=== PATIENT | male | born 1955 | race Caucasian/White ===

== ENCOUNTER 2019-05-14 11:52 | Inpatient (IN) ==
--- NOTE | 2019-05-14 12:26 | PROVIDER DOCUMENTATION ---
HPI-General Adult - General Chief Complaint: Cough Stated Complaint: COUGHING,LT SIDE PAIN Time Seen by Provider: 05/14/19 12:00 Source: patient Allergies/Adverse Reactions: Patient Allergies Allergy/AdvReac Type Severity Reaction Status Date / Time No Known Allergies Allergy Verified 05/14/19 13:20 Home Medications: Home Medication List Medication Instructions Recorded Confirmed Last Taken Type Amoxicillin 1 tab PO TID 05/14/19 05/14/19 05/14/19 History Esomeprazole [Nexium] 1 tab PO DAILY 05/14/19 05/14/19 05/14/19 History Ipratropium [place] 1 spray INH BID 05/14/19 05/14/19 05/14/19 History Levocetirizine Dihydrochloride 1 tab PO DAILY 05/14/19 05/14/19 05/14/19 History Nystatin 1 dose PO 4XDAY 05/14/19 05/14/19 05/12/19 History Tamsulosin HCl 1 tab PO DAILY 05/14/19 05/14/19 05/14/19 History - History of Present Illness -Gen Adult Nature of Presenting Problems: Pt. is 64 yom that presents with c/o dyspnea on exertion, cough, and abd bloating. Pt. reports he just had a physical done at his PCP and has endoscopy and colonoscopy scheduled in the next couple of weeks. He denies any other symptoms. Location of Pain/Injury: reports: abdomen. denies: none, head, face, mouth, neck, chest, upper extremity, hand(s), back, pelvis, genitalia, lower extremity, feet, upper body, lower body, generalized, other Pain Radiation: reports: no radiation. denies: arm(s), back, buttocks, chest, epigastric, feet, groin, jaw, flank (L), legs (lower), LLQ, LUQ, neck, periumbilical, flank (R), RLQ, RUQ, shoulder(s), scapula, scrotal, sternal notc h, suprapubic, legs (upper), urethral, vaginal, other Quality of Pain: reports: aching. denies: burning, cramping, stabbing, tightness Severity: reports: mild. denies: moderate, severe Onset/Duration: reports: gradual, 1 week ago Timing: reports: still present, intermittent. denies: gone now, constant, getting worse Context/Activities at Onset: reports: none. denies: light activity, moderate activity, vigorous activity, recent emotional stress, recent physical stress, recent trauma history, possible bad food, cold exposure, eating, out of country travel, rest, sleep, sexual activity, other Modifying Factors: improves with: nothing Associated Symptoms: reports: cough, heartburn, shortness of breath. denies: denies symptoms, anxiety, arm pain, back/neck pain, chest pain, constipation, diaphoresis, diarrhea, dizziness, EENT symptoms, fatigue, fever/chills, leslee tourinary problems, headaches, joint pain, loss of appetite, malaise, muscle aches, sinus congestion/drainage, nausea, rash, seizure, sensory/motor loss, pain with inspiration, swelling/mass in abdomen, syncope, vomiting, weakness, trouble walking, other Similar Symptoms Previously?: Yes Recently seen or treated by another doctor?: Yes Review of Systems - Adult - REVIEW OF SYSTEMS - ADULT Constitutional: reports: no symptoms reported Eyes: reports: no symptoms reported Ears, Nose, Mouth & Throat: reports: no symptoms reported Cardiovascular: reports: no symptoms reported Respiratory: reports: see HPI, cough, dyspnea on exertion, shortness of breath. denies: chronic cough, pleurisy, wheezing Gastrointestinal: reports: no symptoms reported Genitourinary: reports: no symptoms reported Musculoskeletal: reports: no symptoms reported Integumentary: reports: no symptoms reported Neurological: reports: no symptoms reported Psychiatric: reports: no symptoms reported Past History - Adult - PAST MEDICAL HISTORY-ADULT Review of Records: reports: Old Records Reviewed, Nursing Assessment Review, Medications Reviewed, Social history reviewed & non-contributory. - IMMUNIZATION STATUS Childhood Immunizations: See Nurse Assessment Flu Vaccine: See Nurse Assessment - FAMILY HISTORY Family History: reviewed, not pertinent - SOCIAL HISTORY Smoking: non-smoker Physical Exam-General - PHYSICAL EXAM-ADULT Initial Vital Signs Reviewed: Yes - CONSTITUTIONAL General Appearance: alert, no apparent distress, thin. negative: anxious, slow to respond, obtunded, combative - EYES Eyes: PERRL/EOMI, pink conjunctivae - HEAD, EARS, NOSE, MOUTH & THROAT HENMT: normocephalic/atraumatic, moist mucous membranes - NECK Neck: non-tender, full range of motion, supple, normal inspection. negative: lymphadenopathy, trachial deviation, thyromegaly - RESPIRATORY Respiratory: lungs clear, normal breath sounds - CARDIOVASCULAR Cardiovascular: regular rate, rhythm, no edema, tachycardia - GASTROINTESTINAL (ABDOMEN) Abdominal Exam: normal bowel sounds, non tender, soft - LYMPHATIC Lymphatic: no adenopathy. negative: axilla node tender, cervical node tenderness - MUSCULOSKELETAL Back Exam: normal inspection, no CVA tenderness, no vertebral tenderness Extremity: normal range of motion, non-tender, normal gait, normal inspection Peripheral Pulses: radial (R): 2+, radial (L): 2+ - SKIN Integumentary: normal color, normal turgor, warm/dry - NEUROLOGIC Neurologic: grossly normal, no motor/sensory deficits - PSYCHIATRIC Psych/Mental Status: normal mood/affect, normal thought content, normal thought process, oriented x 3 Progress - PLAN OF CARE/RESULTS Progress/Plan/Lab Results: Vital Signs - 8 hr 05/14/19 11:55 Temperature 98.3 F Pulse Rate 109 H Respiratory Rate 18 Blood Pressure 106/65 O2 Sat by Pulse Oximetry 97 Orders Category Date Time Status Saline Loc NOW Care 05/14/19 12:22 Active FLAT/UPRIGHT ABD/1 VIEW CHEST [RAD] Stat Exams 05/14/19 12:23 Ordered CBC WITH ELECTRONIC DIFF [HEME] Stat Lab 05/14/19 12:22 Uncollected CK PROFILE [SP CHEM] Stat Lab 05/14/19 12:22 Uncollected COMPREHENSIVE METABOLIC PANEL [CHEM] Stat Lab 05/14/19 12:22 Uncollected D-DIMER [COAG] Stat Lab 05/14/19 12:23 Uncollected LIPASE [CHEM] Stat Lab 05/14/19 12:24 Uncollected MAGNESIUM [CHEM] Stat Lab 05/14/19 12:24 Uncollected PRO B-NATRIURETIC PEPTIDE Stat Lab 05/14/19 12:23 Ordered TROPONIN T Stat Lab 05/14/19 12:23 Uncollected TSH Stat Lab 05/14/19 12:23 Uncollected URINALYSIS W/POSS RFLX CULT [URINALYSIS] Stat Lab 05/14/19 12:23 Uncollected EKG [EKG] Stat Ther 05/14/19 12:22 Ordered Result Diagrams: 05/14/19 13:14 05/14/19 13:14 - XRAY 1 XRAY Study: Chest, Abdomen ([facility] - [address], [address], [place] [address] [facility] - [address] [place] [address] Department of Imaging Patient: NATAN OROSCO Date: 05/14/19MR#: [id number] : 1955DM Status: PRE ERAcct#: [id number] Age/Sex: 64/MRoom/Bed: Loc: ED Ordering Physician: Heather Tee Family Physician: Marcie Rudd MD Reason for Procedure: abd pain/cough Signed FLAT/UPRIGHT ABD/1 VIEW CHEST - 05/14/2019 INDICATION: abd pain/cough TECHNIQUE: COMPARISON: 04/27/2017 FINDINGS: The chest is grossly clear. There is a nonobstructive bowel gas pattern. No free air or abnormal calcifications. IMPRESSION: Negative exam. Electronically signed by Rohan Gaitan 05/14/2019 12:38 PM 05/14/19 1238 Interpreting Physician: Rohan Gaitan MD Dictated Date/Time: 05/14/19 1237 cc: Heather Tee; Marcie Rudd MD) XRAY Interpretation: See note Departure - Departure Date of Disposition Decision: 05/14/19 Time of Disposition Decision: 16:05 DIAGNOSIS: Pulmonary emboli, Pneumonia Disposition: ADMITTED INPATIENT 09 Certified Medical Emergency: Emergent Condition: Fair Referrals and Follow-Ups: Marcie Rudd MD [Primary Care Provider] - - Critical Care Note This patient required my direct & personal management of CC.: Yes Total Time (mins): 50 Critical Care Statement: This patient required my direct personal management to treat or rule out processes, the absence of which, could potentiallly result in sudden, clinically significant life or limb threatening deterioration. Attestation - Physician/ IESHA Attestation Patient care was provided by Advanced Practice Provider:: Yes Advanced Practice Provider:: Heather Tee Advanced Practice Provider documentation review:: The Mid-level provider documentation, treatment plan and medical decision making was reviewed by the physician who agrees with all treatment and medical decision making by the MLP. The physician spent face to face time with patient:: No Advanced Practice Provider documentation review:: Supervising physician onsite and consulted in the evaluation and care of this patient. The physician did not have a face to face encounter with the patient.
--- NOTE | 2019-05-14 12:41 | Diag Imaging Result Doc PS360 ---
FLAT/UPRIGHT ABD/1 VIEW CHEST - 05/14/2019 INDICATION: abd pain/cough TECHNIQUE: COMPARISON: 04/27/2017 FINDINGS: The chest is grossly clear. There is a nonobstructive bowel gas pattern. No free air or abnormal calcifications. IMPRESSION: Negative exam. Electronically signed by Rohan Gaitan 05/14/2019 12:38 PM
[2019-05-14 13:27] LABS: URINE SOURCE CLEAN CATCH
[2019-05-14 13:29] LABS: BASO# 0.02 X1000 (0.0-0.2); BASO% 0.3 % (0.0-0.8); EOS# 0.16 X1000 (0.0-0.7); EOS% 2.3 % (0.0-10.0); HEMATOCRIT 39.8 % (42.0-52.0); HEMOGLOBIN 13.3 g/dL (14.0-18.0); IMM GRAN# 0.03 X1000 (0.0-0.04); IMM GRAN% 0.4 % (0.0-0.5); LYMPH# 0.85 X1000 (1.2-3.4); MCH 26.2 PG (27-31); MCHC 33.4 g/dL (33-37); MCV 78.5 FL (81-99); MONO# 0.62 X1000 (0.11-0.59); MONO% 8.8 % (1.7-9.3); MPV 10.8 FL (7.4-10.4); NEUT% 76.2 % (42.2-75.2); PLT 206 X1000 (130-400); RBC 5.07 XMIL (4.7-6.1); RDW 15.4 % (11.5-14.5); WBC 7.08 X1000 (4.8-10.8)
[2019-05-14 13:35] LABS: BILIRUBIN URINE NEGATIVE (NEGATIVE); BLOOD URINE NEGATIVE (NEGATIVE); COLOR YELLOW; GLUCOSE URINE NEGATIVE (NEGATIVE); KETONE URINE NEGATIVE (NEGATIVE); LEUKOCYTES URINE NEGATIVE (NEGATIVE); NITRITE URINE NEGATIVE (NEGATIVE); PROTEIN URINE TRACE mg/dL (NEGATIVE); SP GRAVITY URINE 1.028; TURBIDITY URINE CLEAR (CLEAR); UROBILINOGEN URINE NORMAL (NORMAL)
[2019-05-14 13:38] LABS: UR EPITHELIAL CELLS <10 /HPF (<10); URINE BACTERIA NEGATIVE /HPF; URINE RBC <10 /HPF (<10); URINE WBC <10 /HPF (<10)
[2019-05-14 14:22] LABS: AGAP 16; ALB/GLOB RATIO 1.7; ALBUMIN 3.9 g/dL (3.5-5.0); ALKALINE PHOSPHATASE 119 U/L (32-122); BUN 20 mg/dL (8-22); CALCIUM 9.4 mg/dL (8.8-10.2); CHLORIDE 105 mmol/L (98-107); COSMO 291; CREATININE 1.1 mg/dL (0.7-1.2); ESTIMATED GFR > 60; GLUCOSE 120 mg/dL (70-104); GOT 25 U/L (10-34); GPT 20 U/L (10-44); LIPASE 20 U/L (13-60); MAGNESIUM 2.1 mg/dL (1.5-2.7); POTASSIUM 4.3 mmol/L (3.5-5.1); SODIUM 144 mmol/L (136-145); TCO2 23 mmol/L (25-35); TOTAL BILIRUBIN 0.51 mg/dL (0.20-1.00); TOTAL PROTEIN 6.2 g/dL (6.3-8.3)
[2019-05-14 14:27] LABS: CK PROFILE 205 U/L (24-204)
[2019-05-14 14:44] LABS: CK INDEX 0.9 (0.0-2.5); CK-MB 1.88 ng/mL (0.0-5.0)
--- NOTE | 2019-05-14 15:50 | Diag Imaging Result Doc PS360 ---
CT ANGIOGRM PULMONARY ARTERIES - 05/14/2019 INDICATION: elevated d-dimer, SOB, tachycardia TECHNIQUE: Axial CT images were obtained after administering intravenous contrast. Coronal MIP images were generated. COMPARISON: 12/08/2018 FINDINGS: There are several small scattered segmental pulmonary emboli bilaterally mainly in the lower lobes. Heart size is normal with no pericardial effusion. There is some mild mediastinal and right hilar lymphadenopathy. There is a small opacity in the right lateral costophrenic angle which was not present previously. There is a moderate left lower lobe infiltrate and a trace left pleural effusion. Upper abdominal organs are grossly unremarkable. Bones are intact. IMPRESSION: 1. Small scattered segmental pulmonary emboli bilaterally. 2. Left lower lobe pneumonia with small parapneumonic effusion. 3. There is minimal infiltrate or area of atelectasis in the right lateral costophrenic angle. 4. This report was discussed with Arron Tee on 05/14/2019 at 3:45 PM and was readback. This exam was performed using automated exposure control, adjustment of mA or kV according to patient size, and/or use of iterative reconstruction technique Electronically signed by Rohan Gaitan 05/14/2019 3:48 PM
[2019-05-14] MEDS ORDERED: LOVENOX 1 MG/KG SUBQ ONE (16:03)
[2019-05-14] MEDS ORDERED: ROCEPHIN 1 GM in NS 50 ML IV ONE (16:12)
[2019-05-14] MEDS ORDERED: ZOFRAN IV PRN (16:42)
[2019-05-14] MEDS ORDERED: TYLENOL PO PRN (16:42)
[2019-05-14] MEDS ORDERED: LOVENOX SUBQ ONE (16:45)
[2019-05-14] MEDS ORDERED: DUONEB (A & A) INH PRN (17:31)
[2019-05-14] MEDS: ZITHROMAX 500 MG/NS 500 MG/250 ML IVPB IV SCH (18:01)
[2019-05-14] MEDS: NS 1,000 ML IV SCH (20:22)
[2019-05-14] MEDS: NORCO-7.5 PO PRN (20:25)
--- NOTE | 2019-05-15 01:04 | HISTORY AND PHYSICAL ---
ADDENDUM: I agree with most components of history, physical, assessment, and plan. HISTORY OF PRESENT ILLNESS: In brief, Mr. Gonzales is 64 years old man with past medical history of active tobacco abuse, head and neck cancer status post radiation, who has been previously worked up outpatient for chronic dyspnea, who came in with episode of dry cough. Same dry cough since about 4 days duration which turned into a productive cough with hemoptysis today morning. He also had an intense back pain yesterday after playing golf and since today morning has been experiencing pleuritic chest pain. In the emergency room he was found to be tachycardic and CT scan was positive for bilateral pulmonary embolism as well as left lower lobe pneumonia so hospitalist team was consulted for further management. The patient also tells me that he has been having dysphagia since last few weeks. Had positive fecal occult blood test. Has abdominal bloating and is scheduled to receive EGD and colonoscopy on 05/19/2019. He denies any unintentional weight loss. He did have recent travel to [place] in [place] of about 8 to 9 hours, though he did take a break every 3 to 4 hours. He denies known history of any other cancer. CURRENT VITALS: Temperature 98.2 degrees, pulse 99, respiratory 21, blood pressure 124/64. He is saturating 97% room air. PHYSICAL EXAMINATION: GENERAL: Well-built man not in any acute distress. HEENT: Nose, nasal cavity appears normal. Oral cavity, no pharyngeal congestion or exudate. NECK: No cervical lymphadenopathy. LUNGS: Decreased air entry with inspiratory crackles left infrascapular region which is minimal. Adequate air entry without any wheeze, rhonchi, crackles other lung oseguera. No egophony. CARDIOVASCULAR: S1, S2 normal. No murmur, rub, or gallop. ABDOMEN: Soft, nontender. EXTREMITIES: He does not have lower extremity edema. LYMPHATIC: There is no inguinal lymphadenopathy. LABORATORIES: Suggestive of microcytic anemia. Normal platelet count. Elevated D-dimer and a normal BMP otherwise. Negative troponins. Blood cultures are in lab. Urine antigens are pending. ASSESSMENT AND PLAN: 1. Left lower lobe pneumonia with hemoptysis. 2. Bilateral pulmonary embolism. 3. Dysphagia, early satiety, bloating, and positive fecal occult blood test, pending outpatient EGD and colonoscopy. 4. Active tobacco abuse. PLAN: 1. I will treat him with intravenous antibiotics. We will follow up with blood culture, sputum culture, urine antigen results. 2. I will treat him with subcutaneous enoxaparin and slowly transition him to oral apixaban. 3. I will also get echocardiogram and EKG. DISPOSITION: We will continue to monitor patient on medical floor. Plan of care discussed the patient and his family at bedside. All of their questions have been answered. cc: Huy Celestin MD
[2019-05-15] MEDS: NORCO-7.5 PO PRN ×2 (04:00→16:40)
[2019-05-15] MEDS: LOVENOX SUBQ SCH ×2 (04:01→16:31)
--- NOTE | 2019-05-15 04:23 | HISTORY AND PHYSICAL ---
PRIMARY CARE PHYSICIAN: Marcie Rudd MD. ATTENDING PHYSICIAN: Huy Celestin MD. CHIEF COMPLAINT: Dyspnea and chest pain. HISTORY OF PRESENT ILLNESS: Mr. Gonzales is a 64-year-old male who presents to the ER today with increasing shortness of breath since yesterday evening. Patient states he was playing golf yesterday afternoon. He started having extensive low back pain, chest pain, and shortness of breath. He started coughing some blood this morning and decided to come to the ER. The patient states he had a physical on Thursday with his primary care physician, Dr. Marcie Rudd, and she did notice some blood in his stool and is supposed to have a GI series scheduled with GI doctor sometime soon. The patient does have a past medical history of a solitary lung nodule and is being followed by Dr. Blair. The patient has also been complaining of shortness of breath for the past 6 months and has been seeing Dr. Blair and Dr. Marcie Rudd for this. He has had repeat chest CTs over the past 2 years for this solitary lung nodule and lung nodule does appear to be a lot smaller than it was on the initial chest CT scan. The patient is denying any pain at this present time. The patient does not seem to be in any acute distress. He is not complaining of any shortness of breath at the present time. Patient is on room air. The patient denies any blood in his stool or blood in his urine. He does state he has a cough at the present time. However, he is not able to produce any sputum with this cough. The patient denies any fever or chills or any weakness. LABORATORY FINDINGS IN THE ER: Show a normal white blood cell count 7.08. Did show a positive D- dimer of 1.35. The hemoglobin is 13.3 and hematocrit 39.8. Creatine kinase is elevated at 205. Troponin was normal at 0.01. Plasma lactate is normal at 0.8. Urinalysis is negative. CT arteriogram was performed, it did show small scattered segmental pulmonary emboli bilaterally and a left lower lobe pneumonia. 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 Solitary lung nodule, being followed by Dr. Blair. Last CT shows that the lung nodule has decreased in size. Shortness of breath for greater than 6 months. The patient states he has been on some amoxicillin for couple of days now for a tooth ache that he has from a root canal, the antibiotics are ordered by his dentist. PAST SURGICAL HISTORY: He had a tonsillectomy in 2003 from a tonsillar cancer. He was seen by Dr. [place] Garcia and received 12 to 13 treatments of radiation. FAMILY HISTORY: Father of stomach cancer and a brother of melanoma. SOCIAL HISTORY: The patient lives here in [place]. He states that he does not smoke on a routine basis. However, occasionally when he is playing golf he will smoke a cigarette if someone has one. The patient denies any alcohol or drug abuse. ALLERGIES: No known drug allergies. MEDICATIONS: Amoxicillin 500 mg p.o. t.i.d., Nexium 40 mg p.o. daily, ipratropium bromide 1 spray inhaled b.i.d., levocetirizine dihydrochloride 5 mg tablet p.o. daily, nystatin 1000 units, 1 tablet p.o. 4 times a day, Flomax 0.4 mg p.o. daily. LABS AND DIAGNOSTICS: White blood cell count 7.08, hemoglobin 13.3, hematocrit 39.8, platelet count 206,000. D-dimer 1.35. Sodium 144, potassium 4.3, chloride 105, carbon dioxide 23, BUN is 20, creatinine is 1.1. GFR greater than 60. Glucose is 120, calcium is 9.4, magnesium is 2.1, total bilirubin is 0.51, AST is 25, ALT is 20, alkaline phosphatase 119, creatine kinase is 205. Creatine kinase index is 0.9. Troponin is less than 0.01. ProBNP is 96. Lipase is 20. Plasma lactate is 0.8. TSH is 1.99. Urinalysis is negative except for trace protein. CT arteriogram was performed, shows small scattered segmental pulmonary emboli bilaterally, shows left lower lobe pneumonia with small parapneumonic effusion. There is a minimal infiltrate area or area of atelectasis in the right lateral costophrenic angle. Abdominal x-ray is negative. REVIEW OF SYSTEMS: A 12-point review of systems has been performed. All are negative except what is stated above in the HPI. PHYSICAL EXAMINATION: VITAL SIGNS: Temperature 98.2, pulse rate 94, respiratory rate 21, BP is 124/64, O2 saturation is 97% on room air. Height is 5 feet 11 inches, weight is 190 pounds. GENERAL: This is a 64-year-old male who is lying in the hospital bed. He is in no acute distress. He is well nourished and well developed. HEENT: Atraumatic, normocephalic. Pupils equal, round, react to light. Mucous membranes are moist. NECK: Supple. No lymphadenopathy. Trachea is midline. No JVD. CARDIOVASCULAR: Regular rate and rhythm. No murmurs, gallops, or rubs appreciated. RESPIRATORY: Lung sounds are clear with equal chest excursion. Respirations are nonlabored with no accessory muscle. GASTROINTESTINAL: Abdomen is soft, nontender, nondistended. Bowel sounds present x4. NEURO: Cranial nerves 2-12 are intact. The patient is awake, alert, oriented. Follows all commands. MUSCULOSKELETAL: Full distal strength noted. No abnormalities. No deformities. EXTREMITIES: No clubbing, cyanosis, edema. DP and PT pulses are present and palpable. SKIN: Warm, dry, intact. No rashes, bruises. There is a small scratch noted to the right lower leg on the phillip area. No diaphoresis noted. ASSESSMENT AND PLAN: 1. Bilateral pulmonary embolisms. We will admit this patient to the medical floor. We will place him on playground monitor. We have started him on Lovenox 1 mg/kg subcu q.12 hours. We will also order a venous ultrasound of the bilateral lower extremities to rule out deep venous thrombosis. We will keep the patient on strict bedrest at this present time. 2. Pneumonia. The patient does have a pneumonia noted. We will start this patient on IV antibiotics, start him on IV fluid hydration. We will give him breathing treatments as needed every 4 hours. 3. Chest pain and abdominal pain. I have started this patient on [place] 7.5/325 q.6 hours p.r.n. pain. The patient does have a pneumonia. We started him on antibiotics for that, and he is also on breathing treatments. The patient does also have bilateral pulmonary embolisms, we have started the patient on Lovenox. This is all likely the source of his pain. 4. Gastroesophageal reflux disease. We have started the patient on omeprazole 40 mg p.o. daily. I have also ordered him Zofran 4 mg IV q.4 hours p.r.n. nausea. 5. Benign prostatic hypertrophy. I have started this patient back on his Flomax per home dose. 6. Dyspnea. The patient has been having symptoms of dyspnea for greater than 6 months. We have started the patient on antibiotics for his pneumonia. We have also put him on blood thinners for his PE's. Hopefully, this will resolve his dyspnea. We are also giving oxygen as needed and breathing treatments. We have admitted this patient to the medical floor and we have started him on a healthy heart diet. I have ordered the venous ultrasound of the bilateral legs. We have ordered blood thinners and antibiotics. We will order repeat labs for in the morning. We will order sputum culture and check urinary cultures. We will repeat his chest x-ray in the morning. Dictated by EL Bates for Huy Celestin MD cc: Huy Celestin MD I agree with most components of history,physical, assessment and plan. A separate addendum has been dictated. CHANTELLE
--- NOTE | 2019-05-15 07:23 | Diag Imaging Result Doc PS360 ---
CHEST-PORTABLE - 05/15/2019 INDICATION: pneumonia COMPARISON: 05/14/2019 FINDINGS: Lung volumes are severely low. There is right hilar adenopathy. There is ill-defined infiltrate in the left lower lobe. No pneumothorax or large pleural effusion. IMPRESSION: Much lower lung volumes. Otherwise no change from prior. Electronically signed by Rohan Gaitan 05/15/2019 7:21 AM
[2019-05-15 07:52] LABS: BASO# 0.01 X1000 (0.0-0.2); BASO% 0.1 % (0.0-0.8); EOS# 0.13 X1000 (0.0-0.7); EOS% 1.8 % (0.0-10.0); HEMOGLOBIN 11.9 g/dL (14.0-18.0); LYMPH% 12.5 % (20.5-51.1); MCH 26.5 PG (27-31); MCHC 33.1 g/dL (33-37); MCV 80.2 FL (81-99); MONO# 0.58 X1000 (0.11-0.59); MONO% 8.1 % (1.7-9.3); NEUT# 5.58 X1000 (1.4-6.5); NEUT% 77.5 % (42.2-75.2); PLT 199 X1000 (130-400); RBC 4.49 XMIL (4.7-6.1); RDW 15.7 % (11.5-14.5)
[2019-05-15 07:57] LABS: AGAP 14; BUN 20 mg/dL (8-22); CHLORIDE 102 mmol/L (98-107); COSMO 279; ESTIMATED GFR > 60; GLUCOSE 115 mg/dL (70-104); POTASSIUM 3.9 mmol/L (3.5-5.1); SODIUM 138 mmol/L (136-145); TCO2 22 mmol/L (25-35)
[2019-05-15 07:58] LABS: CALCIUM 7.9 mg/dL (8.8-10.2); CK PROFILE 108 U/L (24-204); MAGNESIUM 1.9 mg/dL (1.5-2.7)
[2019-05-15 08:08] LABS: INR 1.09
[2019-05-15] MEDS: NS 1,000 ML IV SCH (08:30)
[2019-05-15] MEDS: PRILOSEC PO SCH (08:30)
[2019-05-15] MEDS: FLOMAX PO SCH (08:31)
--- NOTE | 2019-05-15 11:11 | EKG Report ---
Test Performed on : 05/15/2019 10:44:54 AM Test Reason : Baseline EKG for pulm Embolism Blood Pressure : / mmHG Vent. Rate : 092 BPM Atrial Rate : 092 BPM P-R Int : 164 ms QRS Dur : 098 ms QT Int : 374 ms P-R-T Axes : 046 023 011 degrees QTc Int : 462 ms Normal sinus rhythm. Incomplete right bundle branch block Nonspecific T wave abnormality Prolonged QT Abnormal ECG No previous ECGs available Confirmed by Isaiah Luque MD ([id number]) on 05/15/2019 9:59:44 PM
--- NOTE | 2019-05-15 12:16 | PROGRESS NOTE ---
DATE: 05/15/2019 INTERVAL HISTORY: The patient could not sleep overnight because there was noise in the room. He continues to have mild hemoptysis. He denies any shortness of breath. His back pain and left flank pain are improved. We discussed about exam findings, natural history of pulmonary embolism, and I answered all of his questions. OBJECTIVE: Vitals: Currently temperature 97.8 degrees, pulse 76, respiratory rate 16, blood pressure 101/60, he is saturating 93% on room air. On general exam, he does not appear in any acute distress. A well-built man. No pallor, cyanosis, clubbing, or icterus. Air entry mildly decreased on left infrascapular region with inspiratory crackles, no wheeze or rhonchi. S1, S2 normal, no murmur, rub, or gallop. Abdomen is soft, nontender. No lower extremity edema. LABORATORY DATA: Suggestive of microcytic anemia, normal platelet count. Normal electrolytes. Normal coagulation. ASSESSMENT AND PLAN: 1. Left lower lobe pneumonia. Follow up urine streptococcal Legionella antigen, blood cultures and sputum cultures. Continue intravenous ceftriaxone and azithromycin. 2. Bilateral segmental pulmonary emboli with hemoptysis. Continue enoxaparin subcutaneous and change it to Eliquis at the time of discharge. I will follow up with EKG and echocardiogram. 3. Left pleuritic chest pain on breathing: This is likely due to left sided pneumonia. It is already getting better. 3. Dysphagia, early society, bloating, positive fecal occult blood test outpatient, and active tobacco abuse. He is scheduled to receive outpatient EGD and colonoscopy, which I think is important considering his symptoms to rule out any malignancy, and now in the setting of his pulmonary embolism, it becomes even more essential. 4. Active tobacco abuse. I counseled him about stopping tobacco abuse. He agrees. He has already cut down. 5. BPH. Continue home tamsulosin. I will stop his intravenous fluids. DISPOSITION: The patient is hemodynamically stable. I will continue to monitor him inside the hospital as I await the urine antigens as well as sputum and blood cultures. Based on that, I would consider discharging him in the next 24 to 48 hours. Plan of care discussed with him. His questions have been answered. cc: Huy Celestin MD [facility] CENTERMarie
[2019-05-15] MEDS: ROCEPHIN 1 GM in NS 50 ML IV SCH (16:31)
[2019-05-15] MEDS: ZITHROMAX 500 MG/NS 500 MG/250 ML IVPB IV SCH (17:17)
[2019-05-16] MEDS: LOVENOX SUBQ SCH ×2 (05:50→16:30)
[2019-05-16 07:26] LABS: HEMATOCRIT 35.1 % (42.0-52.0); HEMOGLOBIN 11.6 g/dL (14.0-18.0)
[2019-05-16] MEDS: PRILOSEC PO SCH (09:32)
[2019-05-16] MEDS: FLOMAX PO SCH (09:32)
--- NOTE | 2019-05-16 15:05 | ECHO REPORT ---
ORDER DATE: 05/14/2019 MEASUREMENTS: Septal thickness 0.8, left ventricular internal diameter diastole 4.7, posterior wall thickness 0.8, left ventricular internal diameter in systole 3.0, left atrium 318, aortic root 2.8. SUMMARY.: 1. Technically difficult study due to limited acoustic window quality. 2. Aortic valve is trileaflet and opens normally on 2-dimensional images. Peak gradient across aortic valve was less than 10 mmHg. Mitral, tricuspid and pulmonic valves are without evidence of structural abnormality with very mild mitral regurgitation and trace tricuspid regurgitation. The estimated systolic PA pressure by Doppler is 35 to 40 mmHg suggesting mild pulmonary hypertension. Aortic root is normal in size. 3. Normal left ventricular dimensions demonstrated. Estimated left ventricular ejection fraction appears to be at least 65%. No regional wall motion abnormalities are evident. Left atrium is upper normal in size. Apical views are somewhat foreshortened making assessment of right- sided chamber size difficult. On some views there appears to be mild right-sided chamber enlargement. Right ventricular systolic function appears to be grossly preserved. 4. No pericardial effusion. 5. Inferior vena cava not well demonstrated. cc: MD Huy Cardona MD
[2019-05-16] MEDS: ROCEPHIN 1 GM in NS 50 ML IV SCH (16:29)
[2019-05-16] MEDS: ZITHROMAX 500 MG/NS 500 MG/250 ML IVPB IV SCH (16:30)
--- NOTE | 2019-05-16 18:50 | PROGRESS NOTE ---
DATE: 05/16/2019 INTERVAL HISTORY: His echocardiogram had mild pulmonary hypertension, which is likely because of his smoking. He did not have a known or documented diagnosis of chronic obstructive pulmonary disease. He continues to have mild hemoptysis. VITAL SIGNS: His temperature is 97.7 degrees, pulse of 74, respiratory rate 20, blood pressure 126/70. He is saturating 95% on room air. PHYSICAL EXAMINATION: Oral Cavity: Moist. Lungs: He has slightly decreased air entry with inspiratory crackles left infrascapular region. Adequate air entry on right hemithorax. Heart: S1, S2 normal. No murmur, rub, or gallop. Abdomen: Soft, nontender. Extremities: No lower extremity edema. Neurologic: He is alert and oriented x3. LABS: His hemoglobin and hematocrit are stable. ASSESSMENT AND PLAN: 1. Left lower lobe pneumonia with sputum growing gram-negative julia. Follow up urine streptococcal, Legionella antigen, and final sputum culture results. Based on that, plan is to change his antibiotics to oral tomorrow. 2. Bilateral segmental pulmonary emboli with hemoptysis. Continue enoxaparin subcutaneously and change it to Eliquis at the time of discharge. His EKG had normal sinus rhythm with incomplete right bundle branch block, and echocardiogram did not have any documented right ventricular strain pattern. 3. Left-sided pleuritic chest pain on breathing. This has significantly improved since presentation, which is likely in the setting of his pneumonia. His troponins on admission were unremarkable. 4. Dysphagia, early satiety, bloating, positive fecal occult blood test outpatient, active tobacco use, and prior history of head and neck cancer. He was scheduled to receive outpatient esophagogastroduodenoscopy and colonoscopy on by Dr. Stringer. I just called Dr. Stringer and discussed with him over the phone, and he recommended that considering his pulmonary embolism, he may need to be on blood thinners for 3 to 6 months, and his procedure might need to be postponed until then. However, he suggested that if the patient needs to remain inside the hospital for a longer period, then inpatient GI consult could be considered. However, I think, considering his active pneumonia and need for blood thinners, his procedure could be postponed until 3 to 6 months later. 5. Active tobacco abuse. He was counseled about not using his tobacco. 6. Benign prostatic hypertrophy. Continue tamsulosin. DISPOSITION: I am awaiting final sputum culture results. Based on that, my plan is to change his antibiotics to oral. My plan is to change his enoxaparin to Eliquis and later on, consider discharging him tomorrow with outpatient Pulmonology and his regular physician followup. He should have endoscopy done for his dysphagia and positive fecal occult blood test about 3 months later. cc: Huy Celestin MD
--- NOTE | 2019-05-16 21:33 | Extremity Venous Study ---
PROCEDURE NAME: Venous U/S Bilateral Legs - 05/14/2019 STUDY: Bilateral lower extremity venous duplex and color flow imaging study using the Q-Bot Vivid E9 ultrasound system with a 9 L-D transducer. REFERRING PHYSICIAN: EL Mansfield. TUBER HELPER: Rodrigue Herring RVT. INDICATIONS: Pulmonary embolus. FINDINGS: Right common femoral vein and its branches, deep and superficial femoral veins were satisfactorily imaged. They had flow through them and were compressible. Right popliteal vein and the deep veins below the right knee were all compressible and had flow through them. The superficial veins the right lower extremity were compressible throughout their length. The left common femoral vein and its branches, deep and superficial femoral veins were also satisfactorily imaged. They had flow through them and were compressible. Left popliteal vein and the deep veins below the left knee were all compressible and had flow through them. The superficial veins in the left lower extremity were compressible throughout their length. INTERPRETATION: No evidence of acute deep or superficial venous thrombosis of the bilateral lower extremities. cc: Alona Bellamy MD
[2019-05-17] MEDS: LOVENOX SUBQ SCH (05:33)
[2019-05-17 06:05] LABS: BASO# 0.01 X1000 (0.0-0.2); BASO% 0.2 % (0.0-0.8); EOS% 4.9 % (0.0-10.0); HEMATOCRIT 37.1 % (42.0-52.0); HEMOGLOBIN 12.1 g/dL (14.0-18.0); IMM GRAN# 0.02 X1000 (0.0-0.04); IMM GRAN% 0.3 % (0.0-0.5); LYMPH# 0.93 X1000 (1.2-3.4); MCHC 32.6 g/dL (33-37); MCV 79.8 FL (81-99); MONO# 0.47 X1000 (0.11-0.59); MONO% 7.6 % (1.7-9.3); MPV 10.8 FL (7.4-10.4); NEUT# 4.45 X1000 (1.4-6.5); PLT 253 X1000 (130-400); RBC 4.65 XMIL (4.7-6.1); RDW 15.2 % (11.5-14.5); WBC 6.18 X1000 (4.8-10.8)
[2019-05-17] MEDS: PRILOSEC PO SCH (09:15)
[2019-05-17] MEDS: FLOMAX PO SCH (09:15)
[2019-05-17] MEDS ORDERED: HALL'S COUGH LOZENGE MT PRN (10:52)
[2019-05-17 11:24] VITALS: BP 127/79
--- NOTE | 2019-05-17 22:48 | DISCHARGE SUMMARY ---
ADMISSION DATE: 05/14/2019 DISCHARGE DATE: 05/17/2019 DISCHARGE DIAGNOSES: 1. Left lower lobe pneumonia due to Serratia marcescens. 2. Bilateral segmental pulmonary emboli with hemoptysis. 3. Left-sided pleuritic chest pain. 4. Tobacco abuse. 5. Dysphagia followed by Dr. Stringer. 6. Benign prostatic hyperplasia. PROCEDURES PERFORMED: 1. Abdominal x-ray dated 05/14/2019, impression: Negative exam. 2. Pulmonary arteriogram dated 05/14/2019, impression: One small scattered segmental pulmonary emboli bilaterally, left lower lobe pneumonia with small parapneumonic effusion, minimal infiltrate or area of atelectasis in the right lateral costophrenic angle. 3. Echocardiogram dated 05/14/2019: Pulmonary arterial pressure by Doppler is 35 to 40 mmHg suggesting mild pulmonary hypertension. Normal ejection fraction to be at least 65% with no wall motion abnormalities. 4. Chest x-ray dated 05/15/2019, impression: No change from prior. 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 Blair presented to emergency department and was admitted on 05/14/2019 due to extensive low back pain/chest pain and shortness of breath. He states that he started coughing up some blood the morning of admission and decided to come to the emergency department. The day before he was playing golf. As per the patient, a few days ago he had a physical by his primary care doctor, Dr. Marcie Rudd, and she did notice some blood in his stools, and he was supposed to have a GI series scheduled with Dr. Stringer sometime soon. He has also been followed by Dr. Blair because of a solitary lung nodule. Also, the patient has been complaining of some shortness of breath for the past [address] angiogram showed small scattered segmental pulmonary emboli bilaterally and also left lower lobe pneumonia with small parapneumonic effusion. We put this patient on anticoagulation, and also we did blood culture and sputum culture. Blood culture has been negative for more than 48 hours, but the sputum culture showed Serratia marcescens, sensitive to his antibiotics. Today this patient is feeling much better. Vital signs are stable. His pain is much better as well. He will be discharged home. He will follow up with pulmonary doctor as well as Gastroenterology Department. Dr. Celestin contacted Dr. Stringer and explained everything to him, and as per the patient, Dr. Stringer came in and talked to him as well. I believe they will postpone the intervention due to the anticoagulation that he is going to get for the pulmonary embolus. I told him also that it would be good if he sees a salvage machine operator/oncologist. He seems to be doing good today. He is completely alert and oriented. He is not coughing, and the pain is basically gone. I recommended to stay hydrated and start taking his medications as prescribed. PHYSICAL EXAMINATION: Vital Signs: Temperature 98.4 degrees, pulse 88, respiratory rate 18, blood pressure 127/79, oxygen saturation 95% on room air. HEENT: Head normocephalic. No trauma. PERRLA. Neck: Supple. No JVD. No masses. Central trachea. Chest: Clear to auscultation. No wheezing. No rales. Abdomen: Soft, nontender, nondistended. No hepatosplenomegaly. Extremities: No edema, no clubbing, no cyanosis. Neurological examination: The patient is alert and oriented x3. No focal deficits. LABORATORY DATA: WBC 6.1, hemoglobin 12.1, hematocrit 37.1, platelets 253. DISCHARGE MEDICATIONS: Eliquis 10 mg p.o. q.12 hours for 7 days and then 5 mg p.o. q.12 hours, esomeprazole 1 tablet p.o. daily, ipratropium bromide 1 spray inhaler twice a day, levofloxacin 500 mg p.o. daily for 5 days, levocetirizine hydrochloride 1 tablet p.o. daily 5 mg tablet, tamsulosin 0.4 mg p.o. daily and tramadol 50 mg p.o. q.8 hours as needed for pain. TIME SPENT ON DISCHARGE: 25 minutes. cc: Wiley Ferraro MD
== END 2019-05-17 14:15 | disposition home or self-care (01) | DRG 177 ==
LOC: ED 11:52 → SUATTDRO 11:53 → 3N 11:53
PROVIDERS: ATTEND Internal Medicine
CPT/HCPCS: 71010; 71045; 71275; 74022; 80048; 80053; 81001; 82550; 82553; 83605; 83690; 83735; 83880; 84443; 84484; 85014; 85018; 85025; 85379; 85610; 87040; 87070; 87077; 87186; 87205; 87449; 87899; 93005; 93010; 93306; 93970; 94640; 94761; A9270; J0456; J0696; J1650; J7030

== ENCOUNTER 2019-08-09 08:50 | Observation (INO) ==
[2019-08-09] MEDS ORDERED: VANCOMYCIN IV PER PHARMACY MISC SCH (10:30)
--- NOTE | 2019-08-09 10:34 | EKG Report ---
Test Performed on : 08/09/2019 10:21:32 AM Test Reason : endocarditis Blood Pressure : / mmHG Vent. Rate : 088 BPM Atrial Rate : 088 BPM P-R Int : 176 ms QRS Dur : 094 ms QT Int : 352 ms P-R-T Axes : 072 068 037 degrees QTc Int : 425 ms Normal sinus rhythm. Incomplete right bundle branch block Borderline ECG When compared with ECG of 15-MAY-2019 10:44, Nonspecific T wave abnormality no longer evident in Anterior leads Confirmed by Sherman Magana MD ([id number]) on 08/09/2019 11:09:10 PM
--- NOTE | 2019-08-09 10:39 | Diag Imaging Result Doc PS360 ---
EXAM: CHEST-PORTABLE 08/09/2019 HISTORY: endocarditis TECHNIQUE: AP portable upright at 1029 COMMENT: There is right hilar enlargement which was also present on 06/14/2019, 05/15/[address] of 07/20/2019. The lungs appear to be clear. The heart size is not enlarged. Considering differences in projection there has been no significant change since 06/14/2019. IMPRESSION: Right hilar adenopathy. Electronically signed by Earnest Rojas 08/09/2019 10:37 AM
[2019-08-09 11:32] LABS: ALB/GLOB RATIO 1.5; CALCIUM 8.8 mg/dL (8.8-10.2); CREATININE 1.3 mg/dL (0.7-1.2); TOTAL BILIRUBIN 0.49 mg/dL (0.20-1.00); TOTAL PROTEIN 6.7 g/dL (6.3-8.3)
[2019-08-09 11:36] LABS: BASO# 0.02 X1000 (0.0-0.2); BASO% 0.3 % (0.0-0.8); EOS# 0.32 X1000 (0.0-0.7); EOS% 4.3 % (0.0-10.0); HEMATOCRIT 38.9 % (42.0-52.0); HEMOGLOBIN 12.6 g/dL (14.0-18.0); IMM GRAN# 0.06 X1000 (0.0-0.04); IMM GRAN% 0.8 % (0.0-0.5); LYMPH# 1.39 X1000 (1.2-3.4); LYMPH% 18.7 % (20.5-51.1); MCH 25.4 PG (27-31); MCHC 32.4 g/dL (33-37); MCV 78.4 FL (81-99); MONO# 0.54 X1000 (0.11-0.59); MONO% 7.3 % (1.7-9.3); MPV 11.4 FL (7.4-10.4); NEUT# 5.11 X1000 (1.4-6.5); NEUT% 68.6 % (42.2-75.2); PLT 92 X1000 (130-400); RBC 4.96 XMIL (4.7-6.1); WBC 7.44 X1000 (4.8-10.8)
[2019-08-09] MEDS ORDERED: ZOFRAN IV PRN (12:24)
[2019-08-09] MEDS: ROCEPHIN 2 GM in NS 50 ML IV SCH ×2 (12:24→23:08)
[2019-08-09] MEDS ORDERED: TYLENOL PO PRN ×2 (12:24→17:51)
--- NOTE | 2019-08-09 12:42 | CARDIOLOGY CONSULTATION ---
DATE: 08/09/2019 REQUESTING PHYSICIAN: Consultation requested by the hospitalist service, Dr. Ritchie Blair also. REASON FOR CONSULTATION: The patient has an abnormal echocardiogram, requires a transesophageal echocardiogram. HISTORY: The patient is 64 years of age, presented to Dr. Blair as a followup of an abnormal chest x-ray with a pulmonary nodule. On 05/14/2019, he was admitted through the emergency room department because of shortness of breath and finding of small scattered segmental pulmonary emboli bilaterally and left lower lobe pneumonia. The patient at that time was evaluated and treated by the hospitalist service. He was discharged on 05/17/2017 with instructions to stay on long-term anticoagulation as well as antibiotics. He has continued to be followed by Dr. Blair and recently he did a CT scan of the chest on July 27 that was reported as indicating interval development of three splenic lesions. Location and appearance raise the possibility of splenic infarcts. Chronic hematomas and cystic metastasis are not excluded. New indeterminate right renal lesion. He went ahead and ordered an echocardiogram which I read yesterday and that echocardiogram reveals the presence of masses within the right ventricle, one attached to the right ventricular free wall, the other one to the septal aspect of the right ventricular outflow tract. In addition, the mitral valve looks abnormal with suspected endocarditis of the distal portion of the leaflets with moderate mitral regurgitation. A CONTRERAS was suggested and Dr. Blair instructed the patient to come in to the hospital for further evaluation. The patient denies having any chest pain. He does have some exertional dyspnea. He is also limited by sciatica pain involving both legs. The patient denies having chills, fever, sweats, visual changes, skin lesions, rash. PAST MEDICAL HISTORY: is positive for a diagnosis of pulmonary embolism recently on 05/14/2019, treated with anticoagulation. The treatment is still ongoing. He has no history of heart disease. He has had a pulmonary nodule in the past. He has had tonsil cancer in the past, treated with radiation therapy after surgery. SURGICAL HISTORY: Includes tonsillar cancer treated surgically and also followed by radiation. FAMILY HISTORY: The patient has a family history of cancer of the stomach. SOCIAL HISTORY: Patient is single. He has children. 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 He smokes occasional cigar. HOME MEDICATIONS: Include Nexium 40 mg daily, gabapentin 100 three times a day, tamsulosin 1 tablet daily, Tizanidine 2 mg as needed. ALLERGIES: The patient has no allergies. PHYSICAL EXAMINATION: Vital signs: Blood pressure 106/68, temperature 97.8 degrees, pulse 93, respirations 18. General: Patient is awake, alert, oriented, in no distress. HEENT: Unremarkable. Chest: Sounds clear to auscultation and percussion. Heart: Sounds regular and rhythmic. No gallop or murmur. Abdomen: Nontender, soft. No masses, no hepatomegaly. Extremities: Show good pulses. No peripheral edema. Neurological exam: Nonfocal. Moves 4 extremities. IMPRESSION: 1. Patient who has an abnormal echocardiogram that appears to suggest possible tumoral infiltration of the right ventricular wall versus thrombus plus possible endocarditis of the mitral valve with moderately severe mitral regurgitation. 2. Patient with nodules in the lung and hilar lymphadenopathy on the right side. Possible case of lymphoma. 3. History of previous tonsillectomy for cancer. 4. History of pulmonary embolism about 3 months ago, treated with anticoagulation. RECOMMENDATION: At this time, I agree with Dr. Ritchie Blair about pursuing transesophageal echocardiogram. The benefits, risks, complications of the procedure were discussed with the patient in detail. He understood and requested to proceed. Further advice will be forthcoming. Thank you again for the opportunity to participate in the patient's evaluation. cc: MD CHANTELLE Ferreira
[2019-08-09] MEDS ORDERED: NS 1,000 ML ONE (13:27)
[2019-08-09] MEDS ORDERED: VERSED ONE (13:27)
[2019-08-09] MEDS ORDERED: ANESTHESIA PB SET 88 IN 5742 ONE (13:27)
[2019-08-09] MEDS ORDERED: DEMEROL ONE (13:27)
[2019-08-09] MEDS ORDERED: XYLOCAINE 2% VISCOUS ONE (13:29)
--- NOTE | 2019-08-09 13:29 | HISTORY AND PHYSICAL ---
PRIMARY CARE PROVIDER: Dr. Marcie Rudd CHIEF COMPLAINT: Direct admission from Dr. Blair for endocarditis. HISTORY OF PRESENT ILLNESS: Mr. Gonzales is a 64-year-old gentleman with a history of COPD, tonsillar carcinoma, status post removal and radiation, GERD. Diagnosis of bilateral PE in April 2019. He has been following up with Dr. Blair for a pulmonary nodule in the right upper lobe. A PET scan was performed and the right hilar node was significant for enlargement from prior scans. He then underwent an echocardiogram that was read yesterday by Dr. Murguia that was concerning for suspected endocarditis involving the mitral valve with a moderately severe degree of mitral valve regurgitation in both the leaflets, anterior and posterior. In addition, there were masses to the right ventricle attach to the RV free wall. He reports only new issues he has had in his medical history is bilateral sciatica nerves with left leg involvement. He has not had a chance to follow up with his primary GI specialist to get his EGD or colonoscopy that was recommended from his last admission. He did report 3 weeks ago he did have some left-sided chest discomfort that was on and off. He went to Urgent Care and they felt it was more constipation related and treated as such. He denies any fever, chills, headache, nausea, vomiting, diarrhea. No heart palpitations. He did report over the past year he has been able to hear his heartbeat in his ears. He has had a decrease in appetite. This is secondary to his dysphagia and he felt it was also age related. The last time he smoked was about 4 months ago [place] a cigar. He will be admitted to the medical floor with follow up with Infectious Disease as well as Cardiology who will set him up for a CONTRERAS today. PAST MEDICAL HISTORY: 1. Treated for pneumonia secondary to serratia back in April 2019. 2. Bilateral PEs diagnosed in April 2019. 3. Dysphagia is followed by Dr. Stringer. He has not had a follow-up with EGD or colonoscopy. 4. Hilar lymph node that has been followed up with Dr. Blair. 5. Benign prostatic hypertrophy. 6. Tonsillar cancer. He has had removal as well as radiation. 7. GERD. PAST SURGICAL HISTORY: Tonsillectomy in 2004 secondary to his cancer. ALLERGIES: No known drug allergies. HOME MEDICATIONS: Have not been verified. FAMILY HISTORY: Mother secondary to stroke. Father secondary to cancer unknown. He has a sister and a brother who are both living and another brother who is from cancer of unknown type. He is single. SOCIAL HISTORY: He is single. He lives in [place]. He works for [employer]. He has 2 children. He does have a past medical history of tobacco use. However, his last smoking was 4 months ago with a cigar. There is no illicit drug use. No IV drug use. REVIEW OF SYSTEMS: Twelve point review of systems completely negative except for those mentioned in HPI. PHYSICAL EXAMINATION: VITAL SIGNS: Temperature is 97.8 degrees, heart rate 93, respirations 18, blood pressure 106/60, O2 is 97% on room air. GENERAL: Mr. Gonzales is a pleasant, somewhat hard of hearing, 64-year-old male lying on the stretcher in no acute distress. HEENT: Atraumatic, normocephalic. PERRL. NECK: Supple, trachea midline. CARDIOVASCULAR: S1, S2 appreciated. I could not appreciate any murmurs, gallops, or rubs. RESPIRATORY: Lung sounds clear bilaterally. GASTROINTESTINAL: Abdomen is soft, nontender, nondistended. Positive bowel sounds 4 quadriceps. EXTREMITIES: Lower extremities negative for edema. NEUROLOGIC: No focal deficits noted. LABORATORY DIAGNOSTIC DATA: Laboratory data pending. Diagnostic data pending. ECHOCARDIOGRAM: Shows suspected endocarditis involving the mitral valve with moderately severe degree of mitral regurgitation involving both leaflets anterior and posterior, as well as masses within the right ventricle attached to the RV free wall in the RV outflow tract suspected to be endocardial vegetation. No diastolic dysfunction. EF is 55 to 60 percent. ASSESSMENT AND PLAN: 1. 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 We will consult Infectious Disease. Start him on Rocephin 2 g IV q.12. We will collect blood cultures. Cardiology will set him up for a CONTRERAS today. He will remain NPO until that time. 2. Known hilar lymph nodes. I believe he is to be set up for biopsies. Dr. Murguia did discuss with him some concern over the lymph nodes and awaiting those biopsies with results. 3. History of pulmonary embolism. We will continue on his Eliquis. 4. Dysphagia, followed by Dr. Stringre. Again, he has not been able to follow- up yet for his EGD or colonoscopy. He just reports issues trying to swallow anything stringy or steaks. 5. Further recommendation to follow physician evaluation, laboratory and diagnostic data. Dictated by EL Givens for Sadaf Kramer MD cc: MD Ritchie Sterling MD Emily M. McClure, MD Luis N. Villanueva, MD Leroy F. Harris, MD I performed a face to face encounter on the patient. I reviewed all labs and imaging on the patient. I agree with the H&P as dictated. [facility]
--- NOTE | 2019-08-09 15:33 | Transesophageal Echocardiogram ---
ORDER DATE: 08/09/2019 INTERPRETING PHYSICIAN: Beka Murguia MD. CLINICAL INDICATIONS: Patient who has a history of previous pulmonary embolization, who presented with symptoms of shortness of breath and Dr. Blair requested an echocardiogram that revealed evidence of possible mass within the right ventricle. Transesophageal echocardiogram was recommended because of the mitral valve also appeared to be abnormal. DESCRIPTION: The patient was consented in his ER room and brought to the cardiac lab systems analyst in a fasting state. The throat was anesthetized with viscous lidocaine and Hurricane. He received 2 mg of Versed and 50 mg of Demerol given in divided doses. The esophagus was intubated without difficulty. Multiple views of the heart were obtained. SUMMARY OF MAIN FINDINGS: 1. The left atrium and the appendage are normal. 2. The interatrial septum is intact. 3. Agitated saline was injected. There was no evidence of shunt. 4. The right atrium is normal. 5. Tricuspid valve looks grossly normal. Color flow mapping indicates mild degree of regurgitation. 6. Within the right ventricle, there are 2 relatively large mobile masses. They have the appearance of thrombus. One attached to RV outflow tract and the other to the RV free wall. 7. Pulmonic valve appears to be grossly normal. Color flow mapping unremarkable. 8. Pulse wave Doppler of pulmonic valve or the RV outflow tract was normal. 9. Aortic valve has 3 cusps, they open normally. Color flow mapping unremarkable. 10.Aortic root and ascending as well as descending thoracic aorta were unremarkable. 11.The left ventricle had normal size and function. There is question of increased trabeculation at the level of the apex of the left ventricle. No thrombus is noted within the left ventricle. 12.The mitral valve is abnormal. There is significant thickening and cauliflower or broccoli- type of lesion at the tip of both leaflets of the mitral valve with a moderate degree of regurgitation. This has the appearance of vegetation. It is not very mobile. It actually appears to be sessile. 13.The left atrial appendage has normal appearance and normal flow. 14.The pulmonary venous flow is normal on both right and left pulmonary veins. 15.There is no pericardial effusion. SUMMARY: This transesophageal echocardiogram is abnormal and suggests the presence of mobile blood clots within the right ventricle and also the presence of possible endocarditis involving the mitral valve. There is moderate degree of mitral regurgitation. Clinical correlation is strongly recommended. cc: Beka Murguia MD [facility]
--- NOTE | 2019-08-09 16:03 | INFECTIOUS DISEASE CONSULT REP ---
DATE: 08/09/2019 CONCLUSION: The patient in April had a Serratia pneumonia. He also had pulmonary emboli. Since that time he has been dyspneic and not back to his complete health. Today, a transesophageal echocardiogram was done and it seemed that there could be some clots present in the heart and possibly a vegetation on the mitral valve. The patient did have a Serratia pneumonia in March as mentioned above, and possibly there could have been a transient bacteremia that caused endocarditis or infection of the pulmonary emboli. RECOMMENDATIONS: I have ordered blood cultures and I have put the patient on Rocephin which is one of the antibiotics that had good activity against the patient's Serratia that caused him to have pneumonia in March. Some of the side effects of the antibiotic including rash and diarrhea have been explained to the patient who agrees with treatment. PRESENT ILLNESS: The patient in March had pneumonia. It was due to Serratia marcescens. He also had pulmonary emboli. He has been somewhat dyspneic. He also has difficulty sleeping. He does not think he has had a fever, although he has not taken his temperature. He is not having night sweats or weight loss. Laboratory studies thus far show a CBC with a white count of 7440, hemoglobin 12.6, and platelet count 92,000. Creatinine is 1.3, GFR is 56. CEA is 74.4. Blood cultures are pending. Chest x-ray shows right hilar adenopathy. PAST MEDICAL HISTORY/REVIEW OF SYSTEMS: Eyes and ears: Patient has tinnitus but his vision is good. Neck: No stiffness. Respiratory: See present illness. GI: No nausea, vomiting, or diarrhea. : No dysuria or flank pain. Bones, joints, muscles: The patient does have occasional low back pain. He does not have any joint swelling or muscle aching. PREVIOUS HOSPITALIZATIONS AND OPERATIONS: He has had admission for pneumonia. He had surgery on his leg. The patient has had removal of his tonsil which had cancer in it. This was followed up with chemotherapy and radiation. The patient did have surgery on his leg. MEDICAL DISEASES: Positive for tonsillar cancer, benign prostatic hypertrophy, pulmonary emboli, and gastroesophageal reflux disease. INFECTIOUS DISEASE HISTORY: Positive for pneumonia. Negative for UTI. FAMILY HISTORY: Positive for cancer. Negative for myocardial infarction. SOCIAL HISTORY: [place] He is . He lives alone. Does not have any pets. He works for the [employer]. He smokes cigarettes but he does not drink alcoholic beverages or abuse drugs. MEDICATIONS: Taken at home include Eliquis, Nexium, gabapentin, ipratropium and tizanidine. PHYSICAL EXAMINATION: Vital Signs: Temperature is 97.5 degrees, pulse 89, respirations 14, blood pressure 140/76. He is 6 feet tall, weighs 188 pounds. General: This is a fairly healthy- appearing, middle-aged male. He is in no acute distress. Head, eyes, ears, nose, and throat: No drainage was noted from the nose or ears. He does not have any white patches in his mouth. Neck: No meningismus. Lungs: Clear to auscultation. Cardiovascular: Heart rate is regular. I did not hear a murmur. Abdomen: Soft and nontender. Neurologic: The patient is alert. He can move his extremities. There is no tremor. His memory as regarding his medical history appeared intact. Integument: No rash noted. Thank you for the consult. cc: Claus Chatman MD
[2019-08-09] MEDS ORDERED: 1/2 NS IV SCH (18:00)
[2019-08-09] MEDS ORDERED: HEPARIN IV SCH (18:00)
--- NOTE | 2019-08-09 21:23 | PULMONOLOGY CONSULTATION ---
DATE: 08/09/2019 REQUESTING PHYSICIAN: Dr. Kramer. REASON FOR CONSULTATION: Hilar adenopathy with endocarditis. HISTORY OF PRESENT ILLNESS: Mr. Gonzales is a 64-year-old white male with extensive tobacco history who was initially seen in my clinic 05/27/2017 for shortness of breath and a solitary pulmonary nodule. CT scan revealed a irregular 14 mm nodule in the right upper lobe which was mildly metabolic with an SUV of 3.1. He had a right hilar node with an SUV of 4.2. The patient was scheduled for outpatient CT-guided biopsy approximately 6 weeks after his initial CT scan which revealed the right upper lobe nodule had significantly decreased in size and therefore no biopsy was performed. This nodule continued to decrease over time and CT scan 12/08/2018 revealed no suspicious findings. The patient was admitted to the hospital 05/14/2019 when he presented with increasing shortness of breath. D-dimer was slightly elevated at 1.[address] scan was performed which revealed bilateral emboli. Sputum cultures also revealed Serratia on that visit. When patient was reevaluated in my office in June I reviewed that hospitalization and noted the right hilar node appeared more prominent and a CT scan of the thorax was performed which revealed a new ground-glass nodule in the left upper lobe, small area of consolidation in the left lung base, with a right hilar adenopathy now measuring 3 x 2.8 x 2.2. PET scan was performed which revealed low-grade activity in the left upper lobe ground-glass area and the right hilar lymph node now has an SUV of 7.6 compared to 4.2 greater than 2 years ago. There was an abnormality in the spleen and CT scan of the abdomen and pelvis was performed which revealed multiple splenic lesions suspicious for splenic infarcts or metastasis with new area of abnormality in the right kidney. The patient was scheduled for an echocardiogram and the case was discussed with Dr. Young. There was no obvious primary identified and we discussed possible referral to [facility] for endobronchial ultrasound-guided biopsy of the right hilar node which could not be easily accessed by CT-guided biopsy after review with the radiologist. Last evening, Dr. Murguia called me indicating that he has an abnormality in both the right and the left heart suspicious for endocarditis. The patient was notified to come to the hospital today for admission. A CONTRERAS was performed which revealed 2 relatively large mobile masses in the right ventricle with the appearance of a thrombus along with thickening and cauliflower/broccoli type lesion on the tip of both leaflets of the mitral valve. Initial laboratories reveal a D-dimer greater than 20 and a CEA level which is elevated at 74.4. PAST MEDICAL HISTORY: 1. Remote history of tonsillar carcinoma in 2003. 2. Remote history of melanoma. 3. Gastroesophageal reflux disease. 4. History of extensive tobacco use. I believe he stopped smoking earlier this year. FAMILY HISTORY: Positive for strokes, unspecified cancer. REVIEW OF SYSTEMS: Notable for left-sided pain for the last 6 to 8 weeks, mild shortness of breath, cough. PHYSICAL EXAMINATION: General: Reveals a well-developed, well-nourished male resting comfortably and in no distress. Despite his current presentation, he appears amazingly nontoxic. HEENT: Pupils are equal and reactive. Oropharynx appears clear. Neck: Supple. Chest: Reveals faint crackles at the left base. Cardiac: Regular rate. Normal S1, normal S2 with 1 to 2/6 systolic ejection murmur lower left sternal border. Abdomen: Soft. Extremities: Without edema. LABORATORIES: As noted in the HPI. IMPRESSION: Complicated 64-year-old white male with 1. Mildly enlarged right hilar node with moderate PET activity. 2. History of right upper lobe nodule which underwent regression and resolution over time. 3. Abnormality in the right heart and left heart suspicious for malignancy or infection. This was not present in April. 4. Marked elevation in CEA level. This may be related to underlying malignancy. It would be unusual for this elevation of CEA due to a single lymph node in the right hilum. It is possible that it may be elevated due to the splenic infarction. 5. Patchy infiltrates in the left upper and lower lobe, likely related to embolic phenomenon related to abnormalities in the liver. 6. Splenic infarction suspected with cardiac findings. 7. Nephritis likely related to cardiac findings. DISCUSSION: Complicated patient as outlined above. I have discussed the case with Dr. Murguia who is worried about underlying malignancy and I have also discussed the case with Dr. Young. An underlying malignancy is suspected but primary cannot has not been easily identified. After discussion with Dr. Young, it is recommended that we repeat a CEA level in the near future to see whether this is a true finding or a red bee. We will continue antibiotics pending results of blood cultures. Recommend ongoing anticoagulation. The patient has been scheduled for an EGD and a colonoscopy but these have been delayed. It is recommended that he undergo a GI evaluation during this hospitalization to rule out a GI malignancy to explain current findings. If GI evaluation is negative and no other source for an elevated CEA can be identified, he may require transfer to [facility] or [place] to a center which can perform an endobronchial ultrasound-guided aspiration of that right hilar lymph node. cc: Ritchie Blair MD [facility]
[2019-08-10] MEDS ORDERED: HEPARIN IV ONE ×2 (02:20→16:45)
[2019-08-10] MEDS ORDERED: 1/2 NS IV SCH ×2 (02:30→17:00)
[2019-08-10] MEDS ORDERED: HEPARIN IV SCH ×2 (02:30→17:00)
[2019-08-10 07:05] LABS: BASO# 0.02 X1000 (0.0-0.2); BASO% 0.3 % (0.0-0.8); EOS# 0.34 X1000 (0.0-0.7); EOS% 4.8 % (0.0-10.0); HEMATOCRIT 38.1 % (42.0-52.0); HEMOGLOBIN 12.2 g/dL (14.0-18.0); IMM GRAN# 0.06 X1000 (0.0-0.04); IMM GRAN% 0.8 % (0.0-0.5); LYMPH# 1.55 X1000 (1.2-3.4); LYMPH% 21.8 % (20.5-51.1); MCH 25.2 PG (27-31); MCV 78.7 FL (81-99); MONO# 0.57 X1000 (0.11-0.59); MPV 11.7 FL (7.4-10.4); NEUT# 4.56 X1000 (1.4-6.5); NEUT% 64.3 % (42.2-75.2); PLT 105 X1000 (130-400); RBC 4.84 XMIL (4.7-6.1); RDW 16.2 % (11.5-14.5)
[2019-08-10 07:32] LABS: ALB/GLOB RATIO 1.3; ALBUMIN 3.5 g/dL (3.5-5.0); CALCIUM 8.4 mg/dL (8.8-10.2); CREATININE 1.3 mg/dL (0.7-1.2); POTASSIUM 3.8 mmol/L (3.5-5.1); TOTAL BILIRUBIN 0.24 mg/dL (0.20-1.00); TOTAL PROTEIN 6.1 g/dL (6.3-8.3)
[2019-08-10] MEDS: HEPARIN IV SCH ×2 (09:00→15:10)
[2019-08-10] MEDS: 1/2 NS IV SCH ×2 (09:00→15:10)
[2019-08-10] MEDS: ROCEPHIN 2 GM in NS 50 ML IV SCH (11:08)
[2019-08-10] MEDS ORDERED: NS 1,000 ML IV SCH (13:30)
--- NOTE | 2019-08-10 14:25 | Diag Imaging Result Doc PS360 ---
EXAM: CT HEAD W/O CONTRAST 08/10/2019 HISTORY: numbness in right arm TECHNIQUE: This exam was performed using automated exposure control, adjustment of mA or kV according to patient size, and/or use of iterative reconstruction technique. COMMENT: There is no evidence of mass effect, bleed, or abnormal extra-axial fluid collection. There is a small poorly circumscribed lucency present in the white matter of the subcortical posterior frontal lobe on the right. There is no evidence of acute bony abnormality. There is a mucous retention cyst in the left maxillary sinus. IMPRESSION: Chronic ischemic microvascular change with small lacune in the white matter on the right anteriorly. No evidence of acute disease. Electronically signed by Earnest Rojas 08/10/2019 2:22 PM
--- NOTE | 2019-08-10 15:17 | INFECTIOUS DISEASE PROGRESS NO ---
DATE: 08/10/2019 PRESENT ILLNESS: The patient has been found to have on transesophageal echocardiogram 2 masses in the right ventricle and a mitral valve vegetation. MEDICATIONS: The patient is on Rocephin 2 g IV every 12 hours. PHYSICAL EXAMINATION: Vital Signs: Temperature is 97.8 degrees, pulse 91, respirations 19, blood pressure 117/83. General: This is a healthy-appearing middle-aged male. He is in no acute distress. Head/eyes/ears/nose/throat: He can hear my spoken words and see near objects. I did not see any white coating on his tongue. Neck: No pain with movement. Lungs: Clear to auscultation. Cardiovascular: Regular heart rate. I did not hear a murmur. Abdomen: Soft and nontender. Neurologic: The patient is alert and coherent. He can move his extremities. There is no tremor. LAB AND X-RAY: CT scan of the head showed chronic ischemic changes. The creatinine is 1.3, GFR is 56. Blood cultures are pending. CBC shows a white count of 7100, hemoglobin 12.2, and platelet count 105,000. ASSESSMENT AND PLAN: The patient may have endocarditis and may have infected masses in the patient's ventricle. In the absence of the patient having any fever, it seems unlikely that the patient will have endocarditis. However, I am going to continue with Rocephin pending final culture results. COMORBIDITIES: Patient had cancer of the tonsils for which he had surgery, chemotherapy and radiation therapy. The patient also has gastroesophageal reflux disease and benign prostatic hypertrophy. The patient has also had pulmonary emboli in the past. cc: Claus Chatman MD
--- NOTE | 2019-08-10 17:22 | HEMO/ONC CONSULTATION ---
DATE: 08/10/2019 HISTORY OF PRESENT ILLNESS: Mr. Gonzales is a 64-year-old male with an extensive tobacco history, who was being followed by Dr. Blair for recurrent shortness of breath and a solitary pulmonary nodule for a while. He was recently diagnosed with pulmonary emboli and left pneumonia in april 2019. 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 He has received Eliquis. Previously CT scan revealed an irregular 14 mm nodule in the right upper lobe that was mildly metabolic active on PET. No right hilar node. The patient was scheduled for a CT-guided biopsy. However, the right upper lobe nodule decreased and earlier this year a CT scan revealed no suspicious findings. In April of this year the patient presented to the hospital with increasing shortness of breath. His D-dimer was slightly elevated and a CT scan was performed which revealed bilateral pulmonary emboli and the hilar nodes appeared more prominent, as well as a new ground-glass nodule in the left upper lobe. A PET scan was ordered which revealed low-grade activity in the left upper lobe ground- glass area and the right hilar lymph node. There was also an abnormality in the spleen that revealed itself to be splenic infarcts. The patient was referred to Cardiology for an echocardiogram. The echocardiogram revealed cardiac vegetation in both the right and left side of the heart, suspicious for endocarditis. The patient was then admitted to the hospital for admission. A CONTRERAS was performed which revealed 2 relatively large mobile masses in the right ventricle with the appearance of a thrombus along with thickening and cauliflower broccoli type lesion on the tip of both leaflets of the mitral valve. This is most likely the source of the pulmonary embolism and the splenic infarcts. Laboratories reveal a D-dimer of greater than 20 and a CEA level elevated at 74.4. PAST MEDICAL HISTORY: 1. Pneumonia with serratia back in April 2019. 2. Bilateral PE, diagnosed in April 2019. 3. Dysphagia, followed by Dr. Stringer. 4. Hilar lymph node that has been followed up with Dr. Blair. 5. BPH. 6. Tonsillar cancer. He had it removed as well as radiation. 7. GERD. PAST SURGICAL HISTORY: Tonsillectomy in 2004 secondary to cancer. ALLERGIES: No known drug allergies. HOME MEDICATIONS: Eliquis, Nexium, gabapentin, levocetirizine, tamsulosin, and tizanidine. SOCIAL HISTORY: He has a past history of tobacco use. He states that he has not smoked in four months. No illicit drug use. REVIEW OF SYSTEMS: Pertinent positives are noted in the HPI. Otherwise ROS negative. PHYSICAL EXAMINATION: Vital Signs: Temperature 97.8 degrees, pulse rate 91, respiratory rate 19, blood pressure 117/83, O2 saturation 97% on room air. He is in 0/10 pain. General: The patient is in no acute distress. HEENT: Sclera is anicteric. PERRLA. Oral mucosa is normal. Cardiovascular: S1, S2 appreciated. Normal heart rate and rhythm. No murmurs, gallops, or rubs appreciated. Respiratory: Lung sounds are clear bilaterally. Normal respiratory effort. Gastrointestinal: Abdomen is soft, nontender, nondistended. Positive bowel sounds. Extremities: No lower extremity edema noted. Neurological: Awake, alert, oriented x3. No focal motor deficits noted. LABORATORY: WBC 7.10, hemoglobin 12.2, hematocrit 38.1, platelet count 105,000. Creatinine 1.3. CEA 74.4. RADIOLOGY: Head CT shows no evidence of acute disease. ASSESSMENT AND PLAN: Plan discussed with Dr. Young. 1. Suspected endocarditis. Cultures so far negative. The patient is currently on antibiotics. Cardiology and Infectious Disease are on board. These vegetation found on both sides of the heart are most likely the source of the PE and splenic infarcts. 2. Hilar lymph node. Suspect malignant. This may need to be biopsied. The patient would need to be transition to heparin. 3. History of pulmonary embolism, 04/2019. 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 4. Elevated CEA. CEA is significantly elevated and out of proportion to his hilar node. We may need to also involve GI for a possible EGD/colonoscopy to rule out a GI primary Dictated by EL Saucedo for Rishi Young MD As above. Discussed case with Dr. Blair and Williams. Patient needs biopsy which is difficult to access. His case is complicated. May need transfer to [facility]. Rishi Young MD cc: Rishi Young MD [facility]
[2019-08-10 19:25] VITALS: BP 155/88
--- NOTE | 2019-08-10 21:24 | GASTROENTEROLOGY CONSULTATION ---
DATE: 08/10/2019 REASON FOR CONSULTATION: Elevated CEA, dysphagia, hilar lymph nodes questionable malignancy. HISTORY OF PRESENT ILLNESS: This is a 64-year-old male who has been following with Dr. Blair for a pulmonary nodule in the right upper lobe. Patient reports having diagnosis of pneumonia and pulmonary emboli in April of this year. He had follow up evaluation by Dr. Blair and a PET scan that showed right hilar node significant for enlargement from previous imaging studies. He was admitted to the hospital for further evaluation. He had echocardiogram concerning for endocarditis and abnormal mitral valve. He then had a transesophageal echocardiogram on 08/09/2019 that was abnormal suggesting presence of mobile blood clots within the right ventricle and also presence of possible endocarditis involving the mitral valve. He also had a moderate degree of mitral regurgitation. It has been recommended that patient be transferred to a tertiary center, [facility] or [place], for endobronchial ultrasound guided aspiration of right hilar lymph nodes. Currently, patient has been accepted to [place] but currently on diversion and waiting on a bed assignment. Per patient's report, he has had chronic GERD symptoms and is on a PPI. He had diagnosis of tonsillary cancer in 2003 and underwent radiation. He does report occasional dysphagia and felt it was related to his tonsillary cancer and radiation and has been adjusting his diet and maneuvers to prevent his dysphagia. He had findings of elevated CEA. Patient has not been seen in our office recently. It has been over 10 years ago because he has a burnt chart. Records reviewed from the hospital did show that he had EGDs and colonoscopies by Dr. Adams in the past. In December 2013, he had an EGD and colonoscopy that showed gastritis, gastric and duodenal polyps and diverticulosis from pathology report. In April of 2014, he had follow up EGD that showed a gastric lipoma and gastric polyps that were fundic gland polyps. In March of 2017 he had an EGD that showed gastritis and benign fundic gland gastric polyp. PAST MEDICAL HISTORY: Pneumonia in April of this year. Diagnosis of bilateral pulmonary emboli in April of this year. Hilar lymph nodes following with Dr. Blair. Benign prostatic hypertrophy. History of tonsillary cancer with surgery and radiation. Chronic GERD on chronic PPI. PAST SURGICAL HISTORY: Tonsillectomy and radiation for tonsillary cancer in 2003. Per hospital records, he has had EGDs and colonoscopies by Dr. Adams. Most recent EGD March of 2017. Colonoscopy in December of 2013 that showed diverticulosis. ALLERGIES: No known drug allergies. HOME MEDICATIONS: Eliquis 10 mg every 12 hours, Nexium 1 daily, Gabapentin 100 mg 3 times a day as needed, respiratory inhaler twice a day, levocetirizine 1 tablet daily, tamsulosin 1 tablet daily, tizanidine 2 mg as needed. SOCIAL HISTORY: He is single. He works for [employer]. He has 2 children. History of tobacco use, none recently. No reported illicit drug use or IV drug use. REVIEW OF SYSTEMS: Per history of present illness. PHYSICAL EXAMINATION: Vital Signs: Temperature 97.8 degrees, pulse 91, respirations 19, blood pressure 117/83. General: The patient is awake and alert in no acute distress. HEENT: Normocephalic, atraumatic. Pupils equal, round, reactive to light. Sclerae nonicteric. Cardiovascular: Regular rate and rhythm. Respiratory: Lung sounds essentially clear. Abdomen: Soft, nontender. Positive bowel sounds. Extremities: No lower extremity edema noted. Neurological: Cranial nerves 2 through 12 grossly intact. Patient is awake, alert, oriented to person, place, and time. DIAGNOSTIC RESULTS: Laboratory: Hematology: WBC 7.10, hemoglobin 12.2, hematocrit 38.1, MCV 78.7, platelets 105,000. PTT 54.0. He is on a heparin drip. Chemistry: Sodium 142, potassium 3.8, chloride 106, CO2 24, BUN 17, creatinine 1.3, glucose 105, calcium 8.4, total bilirubin 0.24, AST 23, ALT 14, alkaline phosphatase 109, C-reactive protein 13.36, CEA 74.4. ASSESSMENT AND PLAN: 1. Hilar lymph nodes followed by Dr. Blair. 2. Possible endocarditis. Patient has had transesophageal echocardiogram. Cardiology following. 3. History of pulmonary embolism. Patient is currently on heparin. 4. History of tonsillary cancer status post chemotherapy and radiation. 5. Chronic gastrointestinal reflux disease, dysphagia. Continue PPI. Follow strict antireflux measures. 6. Transesophageal echocardiogram showing possible masses in the right ventricle along with mitral valve vegetation. Patient has been accepted at [facility] for transfer when bed is available. As far as GI is concerned, he had an EGD and colonoscopy in 2013 along with 2 other EGDs in April of 2014 and March of [address] Adams. Would recommend attention to acute issues first, and then he can follow up with us for GI workup as indicated. I have given him our contact information to follow back in our office for further evaluation. Patient has also been seen by Dr. Venegas. GI will be available acutely if needed in the hospital. Otherwise recommend he follow up with us in the office as an outpatient. Patient is tentative to be transferred to [place] [facility] or tomorrow. Thank you for this consultation. Dictated by EL Littlejohn for Jewel Venegas MD cc: EL Ricardo MD [facility]
--- NOTE | 2019-08-10 22:51 | PULMONOLOGY PROGRESS NOTE ---
DATE: 08/10/2019 SUBJECTIVE: The patient is awake, alert, and conversant. He is without specific complaints. OBJECTIVE: Vital Signs: The patient has been afebrile for the last 24 hours. Blood pressure 117/83, heart rate 91, respiratory rate 19, oxygen saturation 97% on room air. HEENT: Pupils are equal and reactive. Oropharynx appears clear. Neck: Is supple. Chest: Reveals good air entry bilaterally without wheezing or rhonchi. Cardiac exam: S1, S2. Abdomen: Soft. Extremities: Without edema. LABORATORIES: CT scan of the brain reveals chronic microvascular ischemic changes without evidence of acute disease. There is a small poorly circumscribed lucency present in the white matter of the subcortical posterior frontal lobe. White blood count 7.10, hemoglobin 12.2, platelet count 105,000. Sodium 142, potassium 3.8, chloride 106, bicarbonate 24, BUN 17, creatinine 1.3. Microbiology is negative. IMPRESSION: A 64-year-old with remote history of tonsillar cancer with enlarged right hilar lymph node with mild metabolic activity, possible clot with vegetations on the mitral valves suspicious for marantic endocarditis, splenic infarction, nephritis, and patchy upper and lower lobe infiltrates. DISCUSSION: A 64-year-old with problems outlined above. The findings on the heart are suspicious for a marantic endocarditis, which can be seen with adenocarcinoma. The patient also has an elevated CEA, which would be consistent with an adenocarcinoma. The only current abnormality identified on PET scan is in the right hilar node. GI tract has not been formally evaluated. The patient's case has been reviewed with [place] by the hospitalist team and he has been approved for transfer to that hospital. PLAN: 1. Continue anticoagulation. 2. Agree with transfer to [place]. 3. PET scan from my office was provided to the patient and was placed in his transfer packet. cc: Ritchie Blair MD
--- NOTE | 2019-08-11 06:59 | DISCHARGE SUMMARY ---
ADMISSION DATE: 08/09/2019 DISCHARGE DATE: 08/10/2019 SHELLFISH HARVESTER: Dr. Ritchie Blair. ONCOLOGIST: Dr. Rishi Young. FINAL DISCHARGE DIAGNOSES: 1. Two large mobile masses in the right ventricle with sessile lesion on both leaflets of the mitral valve. 2. Moderate mitral valve regurgitation. 3. Enlarged right hilar node with moderate plaque activity. 4. Splenic infarction. 5. Renal infarction. 6. Acute kidney injury. 7. Thrombocytopenia. 8. Pulmonary embolism on chronic anticoagulation. 9. Possible endocarditis. 10. Dysphagia. 11. Elevated CEA. CONSULTATIONS: 1. Pulmonary consultation with Dr. Blair. 2. Oncology consultation with Dr. Young. 3. ID consultation with Dr. Chatman. 4. GI consultation with [facility]. Portable chest x-ray performed on 08/09/2019 that revealed right hilar adenopathy. 2. Head CT performed on 08/10/2019 that revealed chronic ischemic microvascular change with small lacunae in the white matter on the right. PROCEDURES PERFORMED DURING THIS HOSPITAL STAY: Transesophageal echocardiogram which revealed 2 large mobile masses, one attached to the right outflow tract outflow tract and the other to the right ventricular free wall. There is also vegetation involving both leaflets of the mitral valve with moderate mitral valve regurgitation. HOSPITAL COURSE: Mr. Gonzales is a 64-year-old male with history of right hilar adenopathy, recent history of bilateral pulmonary embolism on chronic anticoagulation and dysphagia who was sent to the hospital as a direct admission after the patient was noted to have an abnormal echocardiogram as outpatient. The patient had a transthoracic echocardiogram that indicated the possibility of endocarditis. The patient was admitted to the hospitalist service, and Dr. Murguia with the Cardiology Service was consulted. The patient underwent a CONTRERAS on 08/09/2019 that revealed 2 relatively large mobile masses, one on the right ventricular outflow tract, and the other to the right ventricular free wall. The patient was also noted to have significantly thickened lesion at the tip of both leaflets of the mitral valve with a moderate degree of regurgitation. This appeared to be sessile. In light of these findings, the patient's Eliquis was discontinued, and the patient was started on a heparin drip. Pulmonary was consulted as well as Oncology. The patient was also noted to have an elevated CEA. Infectious Disease was consulted, and the patient was started on Rocephin 2 g IV every 12 hours. Blood cultures were also obtained and are currently pending at the time of this dictation. So far, they show no growth. GI was also consulted for an endoscopic evaluation. After discussion with all subspecialties, it was determined that the patient should be transferred to a tertiary center to further investigate the findings on the CONTRERAS as well as the right hilar adenopathy for possible biopsy of this enlarged node. The patient was also noted to have mild renal insufficiency and was started on IV fluids. The patient's platelet count was noted to be low, and so a HIT antibody essay was obtained, and is currently pending at this time. The patient also had evidence of splenic and renal infarctions on prior imaging. The case was discussed with Dr. Villatoro with the cardiology service at [facility], and he accepted the patient for transfer to [facility] for further evaluation and treatment. This was discussed with the patient and his family, and they were in agreement with transfer to [place]. The patient will be transferred via [facility]. The heparin drip and the IV fluid will be continued in transport to [facility]. cc: Sadaf Kramer MD [email or web address]
== END 2019-08-10 19:38 | disposition short-term general hospital (02) | DRG 303 ==
LOC: SUATTDRO 08:50 → INTOOBSV 08:50 → DIRADM 08:50 → EDIPHOLD 09:37 → 3N 12:20
PROVIDERS: ATTEND Internal Medicine

== ENCOUNTER 2019-09-18 13:19 | Observation (INO) ==
[2019-09-19 16:57] VITALS: BP 141/84
== END 2019-09-19 17:43 | disposition home or self-care (01) ==
LOC: ED 13:19 → 3N 13:19
PROVIDERS: ATTEND Internal Medicine